=== PATIENT | male | born 1965 | race Caucasian/White ===

== ENCOUNTER 2019-04-25 10:31 | Observation (INO) | payer MEDICAID ==
[~2019-04-25] VITALS: Ht 175.3 cm; Wt 133.6 kg
[2019-04-25 11:30] LABS: BASOPHILS 0.5 % (0-2); EOSINOPHILS 3.2 % (0-7); HEMATOCRIT 43.3 % (42.0-54.0); HEMOGLOBIN 15.3 g/dL (13.5-17.5); IMMATURE GRANULOCYTES 0.5 % (0-5); LYMPHOCYTES 33.3 % (15-50); MCH 31.7 pg (26.0-34.0); MCHC 35.3 g/dL (31.0-37.0); MCV 89.8 fL (80.0-100.0); MEAN PLATELET VOLUME 9.3 fL (7.4-10.4); NEUTROPHILS 55.5 % (40-80); PLATELET COUNT 181 10x3/uL (130-400); RBC 4.82 10x6/uL (4.20-6.10); RDW 14.9 % (11.5-14.5); WBC 5.6 10x3/uL (4.8-10.8)
[2019-04-25 11:42] LABS: ALBUMIN 3.8 g/dL (3.4-5.0); ALKALINE PHOSPHATASE 49 U/L (46-116); ALT (SGPT) 81 U/L (10-68); BILIRUBIN - TOTAL 0.38 mg/dL (0.2-1.3); CALC OSMOLALITY 277 mosm/kg (275-300); CARBON DIOXIDE 27.5 mmol/L (21.0-32.0); CHLORIDE - SERUM 102 mmol/L (98-107); CREATININE - SERUM 1.1 mg/dL (0.6-1.3); GLUCOSE 115 mg/dL (74-106); POTASSIUM - SERUM 4.1 mmol/L (3.5-5.1); PROTEIN - SERUM 7.3 g/dL (6.4-8.2); SODIUM 138 mmol/L (136-145); UREA NITROGEN 15 mg/dL (7-18); eGFR NON AFRICAN AMERICAN 74 mL/min (90-120)
[2019-04-25 11:50] LABS: CKMB 5.6 U/L (0.0-3.6); CREATINE KINASE 378 UL (21-232); PRO BNP 57 pg/mL (0-125)
[2019-04-25 11:51] LABS: CHOL - HDL RATIO 6.4 ratio (2.3-4.9); LDL-HDL RATIO 4.1 ratio (1.5-3.5); TROPONIN-I < 0.017 ng/mL (0.000-0.060)
[2019-04-25 13:21] VITALS: BP 132/80
[2019-04-25 14:34] VITALS: BP 132/80; BMI 39.9
[2019-04-25 20:00] VITALS: BP 118/51
[2019-04-26] VITALS: BP 137/62
[2019-04-26 04:00] VITALS: BP 112/57
[2019-04-26 09:40] VITALS: BP 116/58
[2019-04-26 12:08] VITALS: BP 92/77
[2019-04-26 12:18] VITALS: Ht 175.3 cm; Wt 133.6 kg
[2019-04-26] MEDS ORDERED: KLOR-CON 1010 MEQ PO (12:45)
[2019-04-26] MEDS ORDERED: LASIX40 MG PO (12:45)
[2019-04-26] MEDS ORDERED: COREG6.25 MG PO (12:46)
--- NOTE | 2019-04-27 07:43 | MORECARE ---
CASE MANAGEMENT DISCHARGE SUMMARY PATIENT: BILLY KC UNIT: [id number] ADM DATE: 04/25/19 AGE: 53 : 65 SEX: M ROOM/BED: D.2115 AUTHOR: LYDIA GONZALEZ PHYSICIAN: REFERRING PHYSICIAN: JACQUIE DAVIS MD DATE OF SERVICE: 04/27/19 Discharge Plan Patient Name: BILLY KC [facility] [facility] 1965 Planned Disposition: Home Anticipated Discharge Date: 04/26/19 Discharge Date: 04/26/2019 Expected LOS: 1 Initial Reviewer: [email or web address] Initial Review Date: 04/27/2019 Generated: 04/27/19 8:43 am Patient Name: BILLY KC Page 41419 at 0743 All edits/amendments must be made on the electronic document DICTATION DATE: 04/27/19 0743 GERIATRICIAN: MARCEL 04/27/19 0743 RPT#: [id number] DC DATE:04/26/19 STATUS: DIS IN [facility] [address] [place] [address] END OF REPORT
--- NOTE | 2019-05-02 14:31 | DS ---
PATIENT:BILLY KC :65 MEDICAL RECORD: [id number] DISCHARGE SUMMARY ADMISSION DATE: 04/25/19 DISCHARGE DATE: 04/26/19 DIAGNOSES: 1. Chest pain, noncardiac. 2. Lower extremity edema. 3. Hypertension. HOSPITAL COURSE: Mr. Kc presents with lower extremity edema, chest pain, and hypertension. He was started on carvedilol. This resolved the hypertension. He had an echocardiogram that was normal and nuclear stress test was as well normal. Discharged home with the addition of Lasix, potassium, and carvedilol to his medical regimen. He will follow up with his primary care physician. TRANSINT:[id number] Voice Confirmation ID: [id number] DOCUMENT ID: [id number] JACQUIE DAVIS MD at 1431 CC: [id number] DICTATION DATE: 04/26/19 1233 NUCLEAR LICENSING ENGINEER: 04/27/19 0641 DIS IN 04/26/19 [address] [place] [address]
--- NOTE | 2019-05-02 14:31 | EC ---
PATIENT:BILLY KC DATE OF SERVICE: 04/25/19 SEX: M MEDICAL RECORD: [id number] DATE OF : 65 LOCATION:D.M2 D.211 AGE OF PATIENT: 53 ADMISSION DATE: 04/25/19 REFERRING PHYSICIAN: INTERPRETING PHYSICIAN: JACQUIE MOORE MD ECHOCARDIOGRAM REPORT ECHO CHARGES 4 ECHO COMPLETE Date: 04/25/19 CLINICAL DIAGNOSIS: SOB HX HTN ECHOCARDIOGRAPHIC MEASUREMENTS (adult normal given) AC root (d.<3.7cm) 3.4 cm LV Septum d (<1.2 cm> 1.8 cm Valve Excursion 2.1 cm LV Septum (systole) 2.2 cm Left Atria (s.<4.0cm> 4.0 cm LVPW d(<1.2cm) 1.9 cm RV (d.<2.3cm) 3.3 cm LVPW (sytole) 2.1 cm LV diastole(<5.6CM) 5.0 cm MV E-F(>70mm/sec) cm LV systole 4.0 cm LVOT Diameter 1.9 cm MV exc.(>10mm) 1.8 cm Est.ejection fraction (50-75%) % DOPPLER: LVIT cm/sec A 87.0 cm/sec E 79.0 cm/sec LA cm/sec RVSP 18 mmHg LVOT 131 cm/sec AOP1/2T m/s Asc. Ao 133 cm/sec RVOT 97 cm/sec RA cm/sec PA 103 cm/sec AV Gradient Peak 7.04 mmHg AV Mean 3.64 mmHg AV Area 3.1 cm MV Gradient Peak 4.09 mmHg MV Mean 2.21 mmHg MV Area cm COMMENTS: Honing Machine Operator Production: 2 ARIELLE YADAV Web Services Manager: 1 Dr. Moore TAPE# PACS Pericardial Effusion N DATE OF SERVICE: FINDINGS: 1. Left ventricular chamber size is within normal limits. Left ventricular systolic function is normal. Overall ejection fraction estimated at 55% to 60%. 2. Left atrium, right atrium, and right ventricular chamber sizes are upper limits of normal, left atrium measures 4.0 cm. 3. Valvular structures have normal structure and motion. 4. Doppler interrogation reveals no significant valvular insufficiency or stenosis and pulmonary systolic pressure is normal at 18 mmHg. ECHOCARDIOGRAM REPORT [id number] BILLY KC 5. No evidence of pericardial effusion or left ventricular thrombus. TRANSINT:[id number] Voice Confirmation ID: [id number] DOCUMENT ID: [id number] JACQUIE MOORE MD at 1431 CC: [id number] DICTATION DATE: 04/26/19 1213 ASIC DESIGN ENGINEER: 04/26/19 1228 DIS IN 04/26/19 [facility] [address] [id number]
--- NOTE | 2019-05-02 14:31 | HP ---
PATIENT: BILLY KC MEDICAL RECORD: [id number] ACCOUNT: [id number] LOCATION:[address] : 65 ADMISSION DATE: 04/25/19 PCP: No PCP HISTORY AND PHYSICAL EXAMINATION DIAGNOSES: 1. Unstable angina. 2. Shortness of breath, dyspnea on exertion. 3. Hypertension. 4. Hyperlipidemia. 5. Lower extremity edema. HISTORY OF PRESENT ILLNESS: Mr. Kc for the past week has had increasing episodes of chest discomfort has escalated. He is having episodes of rest pain that are quite severe and brought into the Emergency Room today. He has no cardiac history. He had a stress test years ago. He was told it was normal. As well over the past 2 weeks, he has had increasing shortness of breath, dyspnea on exertion and lower extremity edema. He has +4 lower extremity edema. He has not been taking anything or had any workup for this. He does have hypertension, for which he is on no medications, hyperlipidemia as well for which he is on no medications, smoking, and tobacco, and a family history of coronary artery disease. PHYSICAL EXAMINATION: CONSTITUTIONAL/GENERAL APPEARANCE: Well nourished, well developed, appears stated age. EYES: Lids and conjunctivae noninjected. No discharge. No pallor. ENT: Lips within normal limit. No cyanosis. No pallor. NECK: Carotid arteries, bilateral normal upstroke. No bruits. No thrills. No jugular venous pressure or distention. CERVICAL LYMPH NODES: Nontender. Nonenlarged. THYROID: Not enlarged. No nodules. CARDIOVASCULAR: Precordial exam, nondisplaced. No heaves or pericardial thrills. Rate and rhythm, regular. Heart sounds, normal S1, normal S2. No S3, no gallop, no rub. Systolic murmur, not heard. Diastolic murmur, not heard. RESPIRATORY: Respiratory effort, unlabored. Normal curvature. No thoracic deformity. No chest wall tenderness. Percussion, resonant. Auscultation, clear. No wheezes, no rales, no rhonchi. ABDOMEN: Soft, nondistended, nontender. No abdominal pain, no vomiting and normal appetite. MUSCULOSKELETAL: No joint tenderness, normal gait, normal tone. SKIN: Warm and dry. EXTREMITIES: He has +3 to 4 edema bilaterally in his lower extremities. OVERALL IMPRESSION: 1. Chest pain compatible with unstable angina. He has no EKG changes. Troponin is negative. At this time, we will risk stratify with stress testing Cardiolite imaging. We will place him on a nitro patch as well given carvedilol and Lasix for blood pressure and heart rate control. We will start him on aspirin. Further care depends upon findings of the stress test. 2. Lower extremity edema. This very well may be congestive heart failure. We will get an echocardiogram on him at this time and see what his overall ejection fraction is and diurese with Lasix. Further care depends upon the results of these. HISTORY AND PHYSICAL [id number] BILLY KC TRANSINT:[id number] Voice Confirmation ID: [id number] DOCUMENT ID: [id number] JACQUIE DAVIS MD at 1431 CC: [id number] DICTATION DATE: 04/25/19 1229 BUCKLE AND BUTTON MAKER: 04/25/19 1241 DIS IN 04/26/19 [address] [place] [address]
--- NOTE | 2019-05-04 15:34 | ST ---
PATIENT:BILLY KC MEDICAL RECORD: [id number] SEX: M LOCATION:D. D.211 ORDER #: ADMISSION DATE: 04/25/19 AGE OF PATIENT: 53 REFERRING PHYSICIAN: INTERPRETING PHYSICIAN: JACQUIE DAVIS MD DATE OF SERVICE: 04/26/2019 PROCEDURE: Nuclear stress test. INDICATION: Chest pain. He was exercised on standard Lexiscan protocol with 29 mCi of sestamibi injected at peak stress, 9 mCi were used previously for rest images. FINDINGS: Gated SPECT reveals preserved ejection fraction at 56% with good wall motion and thickening and brightening throughout all segments. SPECT imaging: Cardiolite was used as myocardial fusion agent. There is homogeneous uptake throughout all segments at rest and stress with no evidence of inducible ischemia or previous infarction. OVERALL IMPRESSION: 1. This is a normal nuclear stress test with no evidence of inducible ischemia or previous infarction. 2. Gated SPECT reveals a preserved ejection fraction at 56%. In this patient with ongoing symptomatology, the current scan does not suggest the presence of hemodynamically significant coronary artery disease. Evaluate noncardiac etiology of chest pain. TRANSINT:[id number] Voice Confirmation ID: [id number] DOCUMENT ID: [id number] JACQUIE DAVIS MD at 1534 CC: [id number] DICTATION DATE: 05/03/192156 REGISTERED ASSOCIATE: 05/04/19 0113 DIS IN 04/26/19 [address] [place] [address]
== END 2019-04-26 13:31 | disposition home or self-care (01) ==
LOC: D.ER 10:31 → D.M2 13:00 → OBSVTIME 13:35 → D.M2 04-26 13:31
PROVIDERS: Family Medicine; ADMIT Internal Medicine Interventional Cardiology; ATTEND Internal Medicine Interventional Cardiology
DX: I20.0 Unstable angina (principal); R07.9 Chest pain, unspecified; I10 Essential (primary) hypertension; R60.0 Localized edema; R06.02 Shortness of breath

== ENCOUNTER 2019-11-03 22:35 | Inpatient (IN) | payer SELFPAY ==
[~2019-11-03] VITALS: Ht 175.3 cm; Wt 136.4 kg
[~2019-11-03 22:35] MED LIST: COREG6.25 MG PO; KLOR-CON 1010 MEQ PO; LASIX40 MG PO
[2019-11-03] MEDS ORDERED: BUMEX2 MG PO (22:48)
[2019-11-03] MEDS ORDERED: ZYLOPRIM100 MG PO (22:49)
[2019-11-03] MEDS ORDERED: OMEPRAZOLE20 M1 PO (22:49)
[2019-11-03] MEDS ORDERED: PRAVACHOL20 MG PO (22:49)
[2019-11-03] MEDS ORDERED: ZETIA10 MG PO (22:50)
[2019-11-03 23:06] LABS: BASOPHILS 0.3 % (0-2); EOSINOPHILS 2.9 % (0-7); HEMOGLOBIN 15.4 g/dL (13.5-17.5); IMMATURE GRANULOCYTES 0.3 % (0-5); LYMPHOCYTES 22.1 % (15-50); MCH 31.5 pg (26.0-34.0); MONOCYTES 6.2 % (2-11); NEUTROPHILS 68.2 % (40-80); PLATELET COUNT 259 10x3/uL (130-400); RBC 4.89 10x6/uL (4.20-6.10); RDW 14.7 % (11.5-14.5); WBC 10.5 10x3/uL (4.8-10.8)
[2019-11-03 23:08] LABS: BILIRUBIN NEGATIVE (NEGATIVE); GLUCOSE NEGATIVE (NEGATIVE); KETONE NEGATIVE (NEGATIVE); NITRITE NEGATIVE (NEGATIVE); UROBILINOGEN NORMAL (NORMAL)
[2019-11-03 23:17] LABS: CALC OSMOLALITY 280 mosm/kg (275-300); CALCIUM 9.5 mg/dL (8.5-10.1); CARBON DIOXIDE 26.8 mmol/L (21.0-32.0); CHLORIDE - SERUM 101 mmol/L (98-107); CREATININE - SERUM 1.2 mg/dL (0.6-1.3); GLUCOSE 114 mg/dL (74-106); POTASSIUM - SERUM 4.2 mmol/L (3.5-5.1); SODIUM 137 mmol/L (136-145); UREA NITROGEN 29 mg/dL (7-18); eGFR NON AFRICAN AMERICAN 67 mL/min (90-120)
[2019-11-03 23:26] LABS: ALBUMIN 4.3 g/dL (3.4-5.0); ALKALINE PHOSPHATASE 59 U/L (30-120); ALT (SGPT) 57 U/L (10-68); AMYLASE - SERUM 44 U/L (25-115); BILIRUBIN - TOTAL 0.43 mg/dL (0.2-1.3); LIPASE 82 U/L (73-393); PROTEIN - SERUM 8.3 g/dL (6.4-8.2); TROPONIN-I < 0.017 ng/mL (0.000-0.060)
[2019-11-04] VITALS (12 sets, daily range): BP systolic 122–160; BP diastolic 48–103; Ht 175.3 cm; Wt 136.4 kg
--- NOTE | 2019-11-04 02:04 | NUR ---
RECEIVED PT TO FLOOR FROM ER VIA WHEELCHAIR. ACCOMPANIED BY . PT C/O ABDOMINAL PAIN 05/31. GAVE MORPHINE 6 MG IV PUSH. REVIEWED HOME MEDS AND HISTORY WITH PT. COMPLETE ASSESSMENT PER FLOW-SHEET. PT NPO. TELEMETRY RUNNING SR. NO OTHER NEEDS. WILL CONTINUE TO MONITOR.
[2019-11-04] MEDS ORDERED: COREG12.5 MG PO (02:29)
[2019-11-04] MEDS ORDERED: OMEPRAZOLE20 M1 PO (02:30)
[2019-11-04] MEDS ORDERED: PRAVACHOL40 MG PO (02:31)
[2019-11-04] MEDS ORDERED: ALDACTONE25 MG PO (02:32)
[2019-11-04] MEDS ORDERED: BAYER CHEWABLE81 MG PO (02:35)
[2019-11-04] MEDS ORDERED: CLARITIN 10 MG10 MG PO (02:35)
[2019-11-04] MEDS ORDERED: MOTRIN PM CAPL1 EACH PO (02:36)
--- NOTE | 2019-11-04 08:30 | NUR ---
CONSENTS SIGNED, NO DISTRESS NOTED, IN ROOM, IV INFUSING
--- NOTE | 2019-11-04 10:35 | NUR ---
[facility] [id number] EXP 04/18/2024
--- NOTE | 2019-11-04 12:08 | NUR ---
RETURNED TO ROOM PER BED, NS IN PLACE, O2 PER HIGH FLOW AT 6L, 3 LAP SITES CLOSED WITH STERI STRIPS
[2019-11-04] MEDS ORDERED: COLACE100 MG PO (12:33)
[2019-11-04] MEDS ORDERED: HYDROCODON-ACE1 EAC7 PO (12:34)
--- NOTE | 2019-11-04 16:02 | NUR ---
VITALS STABLE, REMAINS ON HIGH FLOW O2 AT 6L, O2 SAT 93-95, HAS TAKEN IN SOME JELLO AND JUICE, LUCERO WELL
--- NOTE | 2019-11-04 19:27 | NUR ---
REPORT RECIEVED AND ROUNDING COMPLETE. PATIENT LAYING IN BED IN LOW FOWLERS POSITION. PATIENT IS WEARINF NASAL CANNULA WITH O2 AT 6L, CONT. O2 MONITOR ON AND STATS AT 94%. PATIENT ASKED FOR ICE WATER WHICH WAS GIVEN TO HIM. PATIENT HAS A LEFT AC PIV THAT IS PATENT WITH FLUIDS RUNNING, PAIN PUMP INTACT.PATIENT HAS NO OTHER NEEDS AT THIS TIME. CALL LIGHT WITHIN REACH AND BED IN LOWEST LOCKED POSITION.
[2019-11-05] VITALS: BP 122/68
--- NOTE | 2019-11-05 00:39 | NUR ---
I have reviewed this patient and I concur with the Shift Assessment completed by the Licensed Practical Nurse today this shift.
[2019-11-05 04:00] VITALS: BP 124/66
--- NOTE | 2019-11-05 05:55 | NUR ---
PATIENT LAYING IN BED, EYES CLOSED, BREATHING SHALLOW AND EVEN, DO DISTRESS NOTED AT THIS TIME. CALL LIGHT WITHIN REACH AND BED IN LOWEST LOCKED POSITION.
[2019-11-05 07:03] LABS: ALBUMIN 3.4 g/dL (3.4-5.0); ANION GAP 12.2 mmol/L (8-16); BILIRUBIN - TOTAL 0.62 mg/dL (0.2-1.3); CALCIUM 8.2 mg/dL (8.5-10.1); CARBON DIOXIDE 29.2 mmol/L (21.0-32.0); CREATININE - SERUM 1.1 mg/dL (0.6-1.3); POTASSIUM - SERUM 4.4 mmol/L (3.5-5.1); PROTEIN - SERUM 6.6 g/dL (6.4-8.2)
[2019-11-05 07:17] LABS: BASOPHILS 0.1 % (0-2); EOSINOPHILS 0.1 % (0-7); HEMATOCRIT 38.4 % (42.0-54.0); HEMOGLOBIN 12.8 g/dL (13.5-17.5); IMMATURE GRANULOCYTES 0.4 % (0-5); LYMPHOCYTES 12.1 % (15-50); MCH 30.8 pg (26.0-34.0); MCHC 33.3 g/dL (31.0-37.0); MEAN PLATELET VOLUME 9.1 fL (7.4-10.4); MONOCYTES 6.9 % (2-11); NEUTROPHILS 80.4 % (40-80); PLATELET COUNT 224 10x3/uL (130-400); RBC 4.15 10x6/uL (4.20-6.10); RDW 15.4 % (11.5-14.5); WBC 11.6 10x3/uL (4.8-10.8)
[2019-11-05 07:18] LABS: MCV 92.5 fL (80.0-100.0)
--- NOTE | 2019-11-05 09:02 | NUR ---
PT ALERT X 4. WHEEZING ON INSPIRATION AND EXPIRATION TO ALL [place], 5L O2 PER NC. TELEMETRY IN PLACE. IV TO LEFT AC, PATENT, DRESSING CDI. 3 LAP SITES TO ABDOMEN, ABDOMEN DISTENDED AND FIRM, TENDER IN RLQ. +1 EDEMA TO BLE. PT REPORTING PAIN OF 4/10, TIRE DUSTER IN USE, WILL MONITOR. PRODUCTIVE COUGH, CLEAR SPUTUM. BED LOW, CALL LIGHT IN REACH. NO OTHER NEEDS AT THIS TIME.
[2019-11-05 09:15] VITALS: BP 106/75
[2019-11-05 12:25] VITALS: BP 120/64
--- NOTE | 2019-11-05 17:12 | NUR ---
DISCHARGE PAPERWORK SIGNED, ALL QUESTIONS ANSWERED. IV TO LEFT AC DC'D, TIP INTACT. ESCORTED OUT VIA WHEELCHAIR.
--- NOTE | 2019-11-06 08:04 | MORECARE ---
CASE MANAGEMENT DISCHARGE SUMMARY PATIENT: BILLY KC UNIT: [id number] ADM DATE: 11/04/19 AGE: 54 : 65 SEX: M ROOM/BED: D.2229 AUTHOR: LYDIA GONZALEZ PHYSICIAN: REFERRING PHYSICIAN: NICHOLE ESCOBEDO MD DATE OF SERVICE: 11/06/19 Discharge Plan Patient Name: BILLY KC [facility] : 1965 Planned Disposition: Anticipated Discharge Date: Discharge Date: 11/05/2019 Expected LOS: 0 Initial Reviewer: [email or web address] Initial Review Date: 11/06/2019 Generated: 11/06/19 9:04 am Patient Name: BILLY KC Page 01129 at 0804 All edits/amendments must be made on the electronic document DICTATION DATE: 11/06/19 0804 INSOLE BEVELER: MARCEL 11/06/19 08 RPT#: [id number] DC DATE:11/05/19 STATUS: DIS IN [facility] [address] [place] [address] END OF REPORT
--- NOTE | 2019-11-06 11:33 | DS ---
PATIENT:BILLY KC :65 MEDICAL RECORD: [id number] DISCHARGE SUMMARY ADMISSION DATE: 11/04/19 DISCHARGE DATE: 11/05/19 PRINCIPAL DIAGNOSIS: Acute appendicitis. SECONDARY DIAGNOSIS: Acute postoperative respiratory insufficiency. OTHER DIAGNOSIS: Hypertension. HOSPITAL COURSE: The patient underwent laparoscopic appendectomy. After the procedure, the patient developed acute respiratory insufficiency with hypoxia and this necessitated a night in the hospital for observation. He has a history of sleep apnea and is on CPAP and wears oxygen at night. The following day, he was feeling better. He was anxious for dismissal. He is being dismissed home on hydrocodone for pain. I will see him in the office in 2 weeks. TRANSINT:[id number] Voice Confirmation ID: [id number] DOCUMENT ID: [id number] NICHOLE ESCOBEDO MD at 1133 CC: [id number] DICTATION DATE: 11/05/19 1438 COLLECTIONS AGENT: 11/06/19 0536 DIS IN 11/05/19 [facility] [address] [place] [address]
--- NOTE | 2019-11-06 11:33 | OP ---
PATIENT NAME: BILLY KC MEDICAL RECORD: [id number] :65 LOCATION:D.MS [address] ADMISSION DATE:11/04/19 SURGEON: NICHOLE ESCOBEDO MD DATE OF OPERATION: PREOPERATIVE DIAGNOSIS: Acute appendicitis with localized peritonitis. POSTOPERATIVE DIAGNOSIS: Acute appendicitis with localized peritonitis. PROCEDURE: Laparoscopic appendectomy. SURGEON: Nichole Escobedo MD SCOUTS: None. BLOOD LOSS: Minimal. ANESTHESIA: General. COMPLICATIONS: None. The risks, possible complications, and alternatives to the procedure were explained to the patient. He elects to proceed. OPERATIVE COURSE: The patient was conveyed to the operating room urgently on 11/04/2019. General anesthesia was induced by the anesthesia staff. The abdomen was sterilely prepped and draped. A small skin haley was accomplished in the left upper quadrant. Veress needle was inserted through the skin haley into the peritoneal cavity. CO2 insufflation was begun. Once a sufficient pneumoperitoneum had been achieved, a 12-mm trocar was inserted through an incision at the umbilicus. A 5-mm trocar was inserted through an incision in the left lower quadrant and a 5-mm trocar was inserted through an incision in the right lower quadrant. During insertion of the Veress needle and all trocars, there appeared to have been no injury to the bowels, any intraperitoneal or retroperitoneal structures. The appendix was inflamed. It was turgid. There was exudate over the appendix. No evidence of perforation. No evidence of necrosis of the appendix. No abscess. The appendix was grasped and retracted anteriorly. I took down the mesoappendix with the laparoscopic EnSeal device. A window was created in the mesoappendix at its base. I advanced an Endo-RAMBO stapler and stapled across the tip of the cecum with blue loads. The appendix was placed within a bag retrieval device and was withdrawn through the umbilical fascia defect. The 12-mm trocar was replaced and the abdomen reinsufflated. I irrigated and aspirated in the right lower quadrant. There was no bleeding even at low pressure of 8. Melissa was added to the mesoappendiceal stump for additional hemostasis. The 12-mm trocar was removed. Utilizing the Geraldo-Louisa suture closure device and 0 Vicryl sutures, I closed the umbilical fascia defect. All the trocars were removed and the abdomen was desufflated. The skin at the umbilicus was closed with interrupted 4-0 Vicryl Rapide sutures. The other skin incisions were closed with interrupted intracuticular 3-0 Vicryls. Benzoin and OPERATIVE REPORT [id number] BILLY KC Steri-Strips were applied. The patient was then extubated and conveyed to post-anesthesia care unit where he was in stable condition. He can be dismissed home later on [address] as well as [place]. I would like to see him in my office in 2-3 weeks. TRANSINT:[id number] Voice Confirmation ID: [id number] DOCUMENT ID: [id number] NICHOLE ESCOBEDO MD at 1133 CC: GAL OSULLIVAN and MELANIE WHITE MD [id number] DICTATION DATE: 11/04/19 1059 COMMUNICATIONS PROFESSIONAL: 11/04/19 1638 DIS IN 11/05/19 [facility] [address] [place] [address]
== END 2019-11-05 17:13 | disposition home or self-care (01) | DRG 342 ==
LOC: D.ER 22:35 → D.MS 11-04 01:08
PROVIDERS: Family Medicine; ADMIT Surgery; ATTEND Surgery
PROC: 0DTJ4ZZ Resection of Appendix, Percutaneous Endoscopic Approach (ICD-10-PCS; principal; 2019-11-04 08:18)
DX: K35.30 Acute appendicitis with localized peritonitis, without perforation or gangrene (principal); J95.89 Other postprocedural complications and disorders of respiratory system, not elsewhere classified; R06.89 Other abnormalities of breathing; I10 Essential (primary) hypertension; M10.9 Gout, unspecified